=== PATIENT | female | born 1985 | race Caucasian/White ===

== ENCOUNTER → 2018-02-22 | Outpatient (CLI) | payer OTHER ==
[~2018-02-22] MED LIST: ACET500 PO; ALBU90OI INH; AMOX500 PO; ANTOXYBENA OT; AZIT250 PO; CHLO500 PO; CIPR500 PO; CODACE30 PO; CODGUAEL PO; CRUTCH4 USE; CYCL10 PO; Cleocin HCl150 MG PO; DOXY100 PO; GABA100 PO; GUAPHELA PO; HYDACE10B PO; HYDACE5 PO; HYDGUAL120 PO; HYDR1TAB94 PO; IBUP200 PO; IBUP800 PO; METO10 PO; METPRE4DP PO; Macrobid 100 M100 MG PO; Metformin HCl500 MG PO; NAPR500 PO; NAPR550 PO; Norco 5-325 Ta1 EACH PO; OXYACE5T PO; PARO20 PO; PENVK500 PO; PHENA200 PO; PROM25 PO; PROP10 PO; RANI150 PO; RXANTBENOT AU; RXCODACET PO; RXCODGUASY PO; RXCYCL10 PO; RXHYDACE PO; RXHYDGUAS PO; RXNAPNA550 PO; RXOXYACE PO; RXPROM25 PO; RXTRAM50 PO; SULTRIDS PO; SULTRISS PO; TRAM50 PO; Zofran Odt4 MG SL
[2018-02-22 19:15] LABS: Influenza A Negative (NEGATIVE); Influenza B Negative (NEGATIVE)
== END | disposition home or self-care (01) ==
LOC: LAB 17:58 → LAB SHORT 17:58
PROVIDERS: Hospitalist
DX: R05 Cough (principal)
CPT/HCPCS: 87804